=== PATIENT | female | born 1965 | race Caucasian/White ===

== ENCOUNTER 2016-12-04 10:28 | Emergency (ER) | payer OTHER ==
[~2016-12-04] VITALS: Wt 82.5 kg
[2016-12-04] MEDS ORDERED: KETOROLAC 30 MG INJ IM STA (10:43)
--- NOTE | 2016-12-04 10:45 | ERD ---
ER Documentation Chief Complaint Date/Time DATE: 12/04/16 TIME: 10:44 Chief Complaint RIGHT ARM PAIN/NUMBNESS X4 WEEKS, NO CHEST PAIN, NO INJURY HPI 51-year-old female otherwise healthy right-hand dominant cancer emergency department right shoulder pain, numbness on and off for the past 4 weeks. She states that she has had some associated swelling as well. It is achy, diffuse, and radiates down to her forearm. 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 She denies any fevers or chills. No weakness. ROS All systems reviewed and are negative except as per history of present illness. Medications Home Meds Active Scripts Naproxen* (Naprosyn*) 500 Mg Tablet, 500 MG PO BID Y for PAIN AND/OR INFLAMMATION, #30 TAB Prov:HEAVEN CARR PA-C 12/04/16 Physical Exam Vitals Vital Signs Date Time Temp Pulse Resp B/P Pulse Ox O2 Delivery O2 Flow Rate FiO2 12/04/16 10:32 98.1 84 18 158/83 97 Physical Exam General: Well-developed, well-nourished. The patient appears in no acute distress. HEENT: Head is normocephalic, atraumatic. No scleral icterus. Neck: Supple. Nontender. Lungs: Clear to auscultation. Normal air movement. Heart: Regular rate and rhythm. S1 and S2 are normal. No murmurs, gallops, or rubs. Abdomen: Nondistended. Extremities: Right arm does not show any bony deformities, there is reproducible pain with shoulder abduction. There is mild swelling to the right humeral region. There is no warmth or erythema. Radial, ulnar, median nerve intact. Capillary refill less than 2 seconds, radial pulses 2+ bilaterally. Neurologic: Alert and oriented 3. No focal deficits. Normal speech and gait. Skin: Normal turgor. No rash or lesions. Results 24 hrs Patient: GALO ZHENG : 1965 Age: 51 Sex: F MR #: [id number] DOS: 12/04/16 1043 Ordering MD: HEAVEN CARR PA-C Location: [facility] Room/Bed: PROCEDURE: XR Shoulder. CLINICAL INDICATION: Right shoulder pain TECHNIQUE: Three views of the right shoulder are available for review. COMPARISON: None available FINDINGS: No acute fracture or dislocation is seen. No radiopaque foreign body is identified. The acromioclavicular and glenohumeral joints demonstrate mild degenerative changes. The visualized portions of the right clavicle and upper right rib cage are equally unremarkable. IMPRESSION: 1. No acute fracture or dislocation is seen. 2. Mild degenerative changes of acromioclavicular and glenohumeral joints. RPTAT: HH .Satya Rose MD, Date Time Electronically viewed and signed by .Satya Rose MD, MD on 12/04/2016 12: 05 .N/ CC: HEAVEN CARR PA-C PROCEDURE: US DVT. CLINICAL INDICATION: 1-month history of right arm pain. TECHNIQUE: Multiple longitudinal and transverse images of the right upper extremity veins were obtained with wells scale and color Doppler imaging. 2D grayscale measurements with compression, color Doppler flow, and augmentation was performed. COMPARISON: No prior studies are available for comparison. FINDINGS: The right jugular vein, subclavian vein, axillary vein, and brachial veins are normally compressible throughout. Color flow demonstrates normal filling of the vessel. Normal waveforms are visualized and there is normal response to augmentation. The basilic, cephalic, radial and ulnar veins were surveyed and appear unremarkable. IMPRESSION: 1. No evidence of a deep vein thrombosis involving the right upper extremity. RPTAT:[facility] Physician Ericka Date Time Electronically viewed and signed by Physician Ericka on 12/04/2016 12: 20 JH/ Current Medications Medications (Trade) Dose Ordered Sig/[place] Route PRN Reason Start Time Stop Time Status Last Admin Dose Admin Ketorolac Tromethamine (Toradol) 30 mg ONCE STAT IM 6/8/17 10:43 12/04/16 10:44 DC 12/04/16 11:01 Procedures/MDM ED course: Toradol 30 mg IM was administered. Abdomen: 51-year-old female comes in with right shoulder pain and numbness for 1 month, likely with tendinitis. 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 There is no evidence of acute osseous injury. No evidence of brachial plexus injury or DVT or infectious process. She will be given Naprosyn at home for pain. Departure Diagnosis: Primary Impression: Right arm pain Condition: Good HEAVEN CARR PA-C Dec 04, 2016 10:45
--- NOTE | 2016-12-04 12:06 | RADRPT ---
PROCEDURE: XR Shoulder. CLINICAL INDICATION: Right shoulder pain TECHNIQUE: Three views of the right shoulder are available for review. COMPARISON: None available FINDINGS: No acute fracture or dislocation is seen. No radiopaque foreign body is identified. The acromioclav icular and glenohumeral joints demonstrate mild degenerative changes. The visualized portions of th e right clavicle and upper right rib cage are equally unremarkable. IMPRESSION: 1. No acute fracture or dislocation is seen. 2. Mild degenerative changes of acromioclavicular and glenohumeral joints. RPTAT: HH .Satya Rose MD, MD Date Time Electronically viewed and signed by .Satya Rose MD, on 12/04/2016 12:05 .N/
--- NOTE | 2016-12-04 12:20 | RADRPT ---
PROCEDURE: US DVT. CLINICAL INDICATION: 1-month history of right arm pain. TECHNIQUE: Multiple longitudinal and transverse images of the right upper extremity veins were obt ained with wells scale and color Doppler imaging. 2D grayscale measurements with compression, color Doppler flow, and augmentation was performed. COMPARISON: No prior studies are available for comparison. FINDINGS: The right jugular vein, subclavian vein, axillary vein, and brachial veins are normally compressible throughout. Color flow demonstrates normal filling of the vessel. Normal waveforms are visualized and there is normal response to augmentation. The basilic, cephalic, radial and ulnar veins were clarke rveyed and appear unremarkable. IMPRESSION: 1. No evidence of a deep vein thrombosis involving the right upper extremity. RPTAT:[facility] Physician Ericka Date Time Electronically viewed and signed by Physician Ericka on 12/04/2016 12:20 /
[2016-12-04] MEDS ORDERED: NAPR-260 PO (12:38)
== END 2016-12-04 13:33 | disposition home or self-care (01) ==
LOC: FTE 10:28
DX: M79.601 Pain in right arm (principal)
CPT/HCPCS: 73030; 93971; 96372; J1885; Z7502